=== PATIENT | male | born 1985 | race African-American/Black ===

== ENCOUNTER 2018-03-17 19:06 | Emergency (ER) | payer OTHER ==
[~2018-03-17] VITALS: Ht 162.6 cm; Wt 68.0 kg
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
[2018-03-17] MEDS ORDERED: CEPHALEXIN500 MG ORAL (19:47)
[2018-03-17] MEDS ORDERED: VALACYCLOVIR500 MG ORAL (19:47)
[2018-03-17] MEDS ORDERED: MUPIROCIN22 GM TOPIC (19:48)
[2018-03-17 19:53] VITALS: BP 127/73
[2018-03-17 19:58] VITALS: BP 127/73
== END 2018-03-17 19:59 | disposition home or self-care (01) ==
LOC: EMR 19:39
DX: B00.1 Herpesviral vesicular dermatitis (principal); L73.9 Follicular disorder, unspecified
CPT/HCPCS: 99284

== ENCOUNTER 2018-06-23 22:36 | Emergency (ER) | payer OTHER ==
[~2018-06-23] VITALS: Ht 165.1 cm; Wt 68.0 kg
[~2018-06-23 22:36] MED LIST: CEPHALEXIN500 MG ORAL; MUPIROCIN22 GM TOPIC; VALACYCLOVIR500 MG ORAL
[2018-06-23] MEDS ORDERED: NKM (22:52)
[2018-06-23 22:54] VITALS: BP 118/70
[2018-06-23] MEDS ORDERED: IBUPROFEN600 MG ORAL (23:42)
[2018-06-23 23:47] VITALS: BP 0/0
--- NOTE | 2018-06-24 01:15 | Emergency Room Report ---
History of Present Illness General Chief Complaint: Upper Extremity Injury Source: Patient Present Illness HPI 32-year-old male presents ED complaining of pain and swelling to left fifth finger. States he jammed his finger while playing basketball one week ago. States it may have been dislocated and he popped it back in the place but states since then there is been persistent swelling and limited mobility. Pain is throbbing, 6 out of 10, nonradiating. Denies any other injuries. No other aggravating relieving factors. Denies any other associated symptoms Allergies: Coded Allergies: APPLE (Verified Allergy, Unknown, 06/23/18) AVOCADO (Verified Allergy, Unknown, 06/23/18) STRAWBERRY (Verified Allergy, Unknown, 06/23/18) TREE NUT (Verified Allergy, Unknown, 06/23/18) Patient History Past Medical History: none Past Surgical History: none Pertinent Family History: none Social History: Denies: smoking, alcohol use, drug use Immunizations: UTD Reviewed Nursing Documentation: PMH: Agreed; PSxH: Agreed Nursing Documentation-PMH Past Medical History: No Stated History Review of Systems All Other Systems: negative except mentioned in HPI Physical Exam Vital Signs Date Time Temp Pulse Resp B/P (MAP) Pulse Ox O2 Delivery O2 Flow Rate FiO2 06/23/18 22:50 98.1 65 18 118/70 97 98.1 Sp02 EP Interpretation: reviewed, normal General Appearance: no apparent distress, alert, GCS 15, non-toxic Head: normocephalic Eyes: bilateral eye normal inspection, bilateral eye PERRL ENT: normal ENT inspection Neck: normal inspection Respiratory: normal inspection Cardiovascular #1: normal inspection Gastrointestinal: normal inspection Rectal: deferred Genitourinary: no CVA tenderness Musculoskeletal: decreased range of motion, swelling - L 5th finger Neurologic: alert, oriented x3, responsive, motor strength/tone normal, sensory intact, speech normal Psychiatric: normal inspection Skin: normal inspection Lymphatic: normal inspection Medical Decision Making Diagnostic Impression: Primary Impression: Finger injury Qualified Codes: S69.92XA - Unspecified injury of left wrist, hand and finger( s), initial encounter ER Course Hospital Course 32-year-old M presents to ED complaining of L 5th finger pain/swelling x 1 week Differential diagnoses include: Fracture, dislocation, sprain, contusion Clinical course Patient placed on stretcher. After initial history and physical, I ordered xrays of L hand Xrays prelim read shows no acute dislocation, possible avulsion fracture noted at the PIP joint. discussed findings with patient. Patient already in finger splint and placed back and finger splint. Recommend close follow-up. I will provide referral to hand specialist as well as [facility] as outpatient Diagnosis - finger injury Stable and discharged to home with prescription for Motrin. apply ice, keep elevated. weight bear as tolerated. Followup with hand/ortho. Return to ED if symptoms recur or worsen Other X-Ray Diagnostic Results Other X-Ray Diagnostic Results : X-Ray ordered: L hand # of Views/Limited Vs Complete: 3 View Indication: Pain EP Interpretation: Yes Interpretation: no dislocation, other - ? avulsion fx L 5th finger Impression: Other - ? f Electronically Signed by: Electronically signed by Pop Raines MD Last Vital Signs Date Time Temp Pulse Resp B/P (MAP) Pulse Ox O2 Delivery O2 Flow Rate FiO2 06/23/18 23:47 0/0 06/23/18 22:54 98.1 65 18 97 98.1 Status: improved Disposition: HOME, SELF-CARE Condition: Stable Scripts Ibuprofen* (MOTRIN*) 600 Mg Tablet 600 MG ORAL Q8H PRN for For Pain, #30 TAB 0 Refills Prov: Pop Raines MD 06/23/18 Referrals: DARLENE FRIEDMAN M.D. NOT CHOSEN [facility]/,REFERRING (PCP) Patient Instructions: Finger Sprain, [id number] Pop Raines MD Jun 24, 2018 01:15
--- NOTE | 2018-06-24 11:44 | Diagnostic Imaging Report ---
Indication: Pain, sports injury Technique: 3 views of the left fifth finger Comparison: none Findings: Small ossific density projects anterior to the proximal corner of the middle phalanx. No definite defect is demonstrated at the base of the proximal phalanx. No other evidence of acute fracture. No dislocations. Impression: Probable avulsion fracture off of the anterior base of the fifth middle phalanx, age indeterminate. Correlate with clinical findings This agrees with the preliminary interpretation provided by the emergency room physician
== END 2018-06-23 23:47 | disposition home or self-care (01) ==
LOC: EMR 23:05
DX: S69.92XA Unspecified injury of left wrist, hand and finger(s), initial encounter (principal); W23.0XXA Caught, crushed, jammed, or pinched between moving objects, initial encounter; Y93.67 Activity, basketball; Y92.9 Unspecified place or not applicable; Z91.018 Allergy to other foods
CPT/HCPCS: 99283